=== PATIENT | female | born 1955 | race Hispanic/Latino ===

== ENCOUNTER 2017-06-07 20:14 | Emergency (ER) | payer OTHER ==
[2017-06-07 21:15] LABS: BASOPHILS % (AUTO) 0.2 % (0.0-5.0); EOSINOPHILS % (AUTO) 0.9 % (0.0-8.0); HEMATOCRIT 32.9 % (36-48); LYMPHOCYTES % (AUTO) 12.5 % (21.0-51.0); MEAN CORPUSCULAR HEMOGLOBIN 28.8 pg (27.0-33.0); MEAN CORPUSCULAR HGB CONC 33.8 g/dL (32.0-36.0); MEAN CORPUSCULAR VOLUME 85.3 fL (79-99); MONOCYTES % (AUTO) 7.8 % (3.0-13.0); NEUTROPHILS % (AUTO) 78.6 % (40.0-77.0); PLATELET COUNT (AUTO) 234 K/uL (130-400); RED BLOOD CELL COUNT(AUTO) 3.86 MIL/uL (4.00-5.50); RED CELL DISTRIBUTION WIDTH 13.2 % (11.0-15.5); WHITE BLOOD COUNT (AUTO) 10.5 K/uL (4.8-10.8)
[2017-06-07 21:27] LABS: CREATININE 0.7 mg/dL (0.5-1.5); POTASSIUM 3.6 mmol/L (3.5-5.1)
[2017-06-07 21:33] LABS: ALBUMIN 3.9 g/dL (3.5-5.0); BILIRUBIN,TOTAL 0.6 mg/dL (0.2-1.0); TOTAL PROTEIN, SERUM 7.5 g/dL (6.0-8.3)
[2017-06-07] MEDS ORDERED: AZITHROMYCIN 250 MG TABLET PO ONE (22:30)
[2017-06-07] MEDS ORDERED: CEFTRIAXONE SODIUM 1 GM ONE (22:30)
[2017-06-07] MEDS ORDERED: BENZONATATE 100 MG CAPSULE PO ONE (23:13)
== END 2017-06-07 23:47 | disposition home or self-care (01) ==
LOC: EDH 20:14
DX: J18.1 Lobar pneumonia, unspecified organism (principal); G40.909 Epilepsy, unspecified, not intractable, without status epilepticus; Z88.0 Allergy status to penicillin
CPT/HCPCS: 36415; 71045; 80053; 85025; 87804 ×2; 96374; 99285; J0696; 93005

== ENCOUNTER 2020-07-26 13:49 | Emergency (ER) | payer BC, OTHER ==
[2020-07-26 14:10] LABS: BASOPHILS % (AUTO) 0.5 % (0.0-5.0); HEMATOCRIT 35.8 % (36-48); LYMPHOCYTES % (AUTO) 27.7 % (21.0-51.0); MEAN CORPUSCULAR HEMOGLOBIN 28.6 pg (27.0-33.0); MEAN CORPUSCULAR HGB CONC 32.4 g/dL (32.0-36.0); MEAN CORPUSCULAR VOLUME 88.4 fL (79-99); MONOCYTES % (AUTO) 5.5 % (3.0-13.0); NEUTROPHILS % (AUTO) 63.8 % (40.0-77.0); PLATELET COUNT (AUTO) 255 K/uL (130-400); RED BLOOD CELL COUNT(AUTO) 4.05 MIL/uL (4.00-5.50); RED CELL DISTRIBUTION WIDTH 12.8 % (11.0-15.5)
[2020-07-26] MEDS ORDERED: LORAZEPAM 2 MG/ML 1 ML VIAL ONE (14:10)
[2020-07-26] MEDS ORDERED: ASPIRIN 81MG TAB.CHEW ONE (14:14)
[2020-07-26 14:19] LABS: CREATININE 0.9 mg/dL (0.5-1.5); POTASSIUM 3.6 mmol/L (3.5-5.1)
[2020-07-26 14:20] LABS: INR 1.04 (0.85-1.15); PROTHROMBIN TIME 11.3 SEC (9.6-11.6)
[2020-07-26 14:22] LABS: PARTIAL THROMBOPLASTIN TIME 29.3 SEC (26.3-35.5)
[2020-07-26 14:24] LABS: ALBUMIN 3.9 g/dL (3.5-5.0); BILIRUBIN,TOTAL 0.3 mg/dL (0.2-1.0); TOTAL PROTEIN, SERUM 7.3 g/dL (6.0-8.3)
== END 2020-07-26 14:57 | disposition home or self-care (01) ==
LOC: EDH 13:49
DX: F41.9 Anxiety disorder, unspecified (principal); R07.89 Other chest pain; Z88.0 Allergy status to penicillin
CPT/HCPCS: 36415; 71045; 80053; 82542; 82550; 84484; 85025; 85610; 85730; 93005; 96374; 99285; J2060

== ENCOUNTER 2020-09-13 10:29 | Emergency (ER) | payer BC ==
[2020-09-13] MEDS ORDERED: KETOROLAC TROMETHAMINE 30MG/ML ONE (11:29)
[2020-09-13] MEDS ORDERED: KETOROLAC TROMETHAMINE 60 MG/2 ML VIAL ONE (11:38)
[2020-09-13] MEDS ORDERED: HYDROCODONE/ACETAMINOPHEN 7.5/325 MG TAB ONE (13:37)
== END 2020-09-13 14:31 | disposition home or self-care (01) ==
LOC: EDH 10:29
DX: S39.012A Strain of muscle, fascia and tendon of lower back, initial encounter (principal); S30.0XXA Contusion of lower back and pelvis, initial encounter; S70.11XA Contusion of right thigh, initial encounter; S09.90XA Unspecified injury of head, initial encounter; M54.42 Lumbago with sciatica, left side; G40.909 Epilepsy, unspecified, not intractable, without status epilepticus; Z88.0 Allergy status to penicillin; W18.39XA Other fall on same level, initial encounter; Y93.01 Activity, walking, marching and hiking; Y92.89 Other specified places as the place of occurrence of the external cause; Y99.8 Other external cause status
CPT/HCPCS: 70450; 72131; 72192; 96372; 99284; J1885

== ENCOUNTER → 2023-11-21 | Outpatient (CLI) | payer OTHER ==
[~2023-11-21] MED LIST: D-ME118S56 PO
[2023-11-21 16:28] LABS: BILIRUBIN,TOTAL 0.2 mg/dL (0.2-1.0); CREATININE 0.8 mg/dL (0.5-1.0); POTASSIUM 3.7 mmol/L (3.5-5.1); TOTAL PROTEIN, SERUM 7.6 g/dL (6.0-8.3)
== END | disposition home or self-care (01) ==
LOC: LAB 11-14 15:49
PROVIDERS: ATTEND Internal Medicine Cardiovascular Disease
DX: R07.9 Chest pain, unspecified (principal)
CPT/HCPCS: 36415; 80053

== ENCOUNTER → 2023-11-30 | Outpatient (CLI) | payer OTHER ==
[~2023-11-30] MED LIST changes: +IOHEXOL 350 MG/ML 100ML INFUS..BTL IV ONE
== END | disposition home or self-care (01) ==
LOC: RAH 11:09
PROVIDERS: ATTEND Internal Medicine Cardiovascular Disease
DX: I25.10 Atherosclerotic heart disease of native coronary artery without angina pectoris (principal); R07.9 Chest pain, unspecified; M47.815 Spondylosis without myelopathy or radiculopathy, thoracolumbar region
CPT/HCPCS: 75574; Q9967

== ENCOUNTER → 2023-12-16 | Outpatient (CLI) | payer OTHER ==
[~2023-12-16] MED LIST changes: -IOHEXOL 350 MG/ML 100ML INFUS..BTL IV ONE
== END | disposition home or self-care (01) ==
LOC: SHCH 08:43
PROVIDERS: ATTEND Internal Medicine Cardiovascular Disease
DX: R01.1 Cardiac murmur, unspecified (principal)
CPT/HCPCS: 93306

== ENCOUNTER 2024-12-22 11:04 | Emergency (ER) | payer OTHER, MEDICAID ==
[~2024-12-22] VITALS: Ht 157.5 cm; Wt 68.9 kg
--- NOTE | 2024-12-22 11:13 | ERN ---
ED Note History of Present Illness Stated Complaint: CP Chief Complaint: Chest Pain Time Seen by MD: 11:08 Dictation: PATIENT IS A 69-YEAR-OLD FEMALE COMING IN TODAY WITH SUBSTERNAL CHEST PAIN THAT DOES NOT RADIATE AND HAS BEEN CONSTANT SINCE TUESDAY. NO SOB NO BACK PAIN NO JAW PAIN NO ARM PAIN. SHE STATES SHE SAW HER DOCTOR TUESDAY WHO EVALUATED HER, DIAGNOSED HER WITH ANGINA HOWEVER DID NOT PROVIDE HER WITH ANY NITROGLYCERIN. HE REFERRED HER TO DR. NEHEMIAH LESLIE AND SHE HAS A AN APPOINTMENT NEXT WEEK. SHE STATES SHE CAME IN TODAY BECAUSE SHE WAS UNCOMFORTABLE AND WANTED FURTHER EVALUATION AND TREATMENT Allergies: Coded Allergies: Penicillins (Unverified Allergy, Unknown, 09/13/20) lidocaine (Unverified Allergy, Unknown, 07/24/23) Home Meds Active Scripts Pantoprazole Sodium (Pantoprazole Sodium) 40 Mg Tablet.dr, 1 TAB PO DAILY for 30 Days, #30 TAB 0 Refills Prov:PATRIA BRAVO BIOLOGICAL SCIENTIST 12/22/24 Sucralfate (Carafate) 1 Gram Tablet, 1 GM PO ACHS for 5 Days, #20 TAB Prov:PATRIA BRAVO NP 12/22/24 D-Methorphan Hb/P-Epd HCl/Bpm (Qyshblvyha-Sexwjguxuug-Zl Syr) 2 Mg-30 Mg-10 Mg/5 Ml Syrup, 118 ML PO BID, #100 ML Prov:MARIN ARCHER MD 07/24/23 Past Medical History Past Medical History: Dementia, Depression, Hypertension, Seizure Additional Past Medical Hx: OSTEOPOROSIS, Surgical History: Cholecystectomy Surgical History Other: CATARCT SX History: Not Applicable RN Note Reviewed/Agreed w/PFSH: Yes Review of System Dictation CONSTITUTIONAL: NEGATIVE EXCEPT FOR HPI HEAD/FACE: NEGATIVE EXCEPT FOR HPI EENT: NEGATIVE EXCEPT FOR HPI RESPIRATORY: NEGATIVE EXCEPT FOR HPI SUBSTERNAL CHEST PAIN GASTROINTESTINAL/ABDOMINAL: NEGATIVE EXCEPT FOR HPI GENITOURINARY: NEGATIVE EXCEPT FOR HPI MUSCULOSKELETAL: NEGATIVE EXCEPT FOR HPI INTEGUMENTARY: NEGATIVE EXCEPT FOR HPI NEUROLOGICAL/PSYCH: NEGATIVE EXCEPT FOR HPI HEMATOLOGIC/LYMPHATIC: NEGATIVE EXCEPT FOR HPI ALL SYSTEMS NEGATIVE, EXCEPT NOTED ABOVE. 13 POINT REVIEW OF SYSTEMS ASSESSED AND ALL NEGATIVE EXCEPT FOR ABOVE. Initial Vital Sign VS Vital Signs Date Time Temp Pulse Resp B/P (MAP) Pulse Ox O2 Delivery O2 Flow Rate FiO2 12/22/24 11:07 97.5 76 16 127/69 97 Room Air 0 12/22/24 11:11 21 Physical Exam Dictation VITAL SIGNS REVIEWED GENERAL APPEARANCE: ALERT, ORIENTED X 3, MILD ACUTE DISTRESS, WELL DEVELOPED, NOURISHED. HEAD AND FACE: NON-TRAUMATIC. EYES: PERRL, PINK CONJUNCTIVAS, EYELID NO TRAUMA, ANTERIOR CHAMBER WITH ARCUS SENILIS. EARS: PINNAS INTACT AND NO SIGNS OF TRAUMA OR ERYTHEMA EAR CANALS CLEAR AND NO DISCHARGE TM NO ERYTHEMA NOSE: NO DISCHARGE, NO BLEEDING. OROPHARYNX: MOUTH NORMAL, TONGUE PINK, PHARYNX CLEAR,NO ERYTHEMA, TONSILS NO EXUDATES, NO ABSCESSES NOTED, MUCOUS MEMBRANE MOIST NECK: SUPPLE, NON-TENDER, NO THYROMEGALY, NO MASSES, NO JVD, NO BRUITS BREAST:DEFERRED CHEST:NO TENDERNESS, NO CREPITUS, NO PARADOXICAL MOVEMENT, NO RETRACTIONS LUNGS:CLEAR, WELL-VENTILATED, SYMMETRIC, NO RALES, NO WHEEZING, NO RHONCHI, NO STRIDOR, GOOD BREATH SOUNDS BILATERALLY HEART: REGULAR RATE, REGULAR RHYTHM, NO MURMUR, NO GALLOPS VASCULAR: NO PERIPHERAL EDEMA, ABDOMEN: SOFT, POSITIVE BOWEL SOUNDS, NONDISTENDED, NO GUARDING, NONTENDER, NO REBOUND, NO MASSES NO HEPATOMEGALY, NO SPLENOMEGALY, NO SAAVEDRA'S SIGN, NO HERNIAS. RECTAL: DEFERRED GENITAL: DEFERRED NEUROLOGICAL: NORMAL SPEECH, MOTOR FUNCTION INTACT, SENSORY FUNCTION INTACT MUSCULOSKELETAL: NECK NONTENDER, FULL RANGE OF MOTION, BACK NONTENDER, FULL RANGE OF MOTION, EXTREMITIES: NONTENDER, FULL RANGE OF MOTION SKIN: COLOR PINK, DRY, NO TURGOR, NO RASH, NO LACERATIONS, NO ABRASIONS, NO CONTUSIONS. LYMPHATIC: DEFERRED Results (Laboratory/Radiology) Laboratory/Radiology Laboratory Tests Test 12/22/24 11:27 12/22/24 12:30 White Blood Count 6.4 K/uL (4.8-10.8) Red Blood Count 4.05 MIL/uL (4.00-5.50) Hemoglobin 11.8 g/dL (12.0-16.0) L Hematocrit 36.8 % (36-48) Mean Corpuscular Volume 90.9 fL (79-99) Mean Corpuscular Hemoglobin 29.1 pg (27.0-33.0) Mean Corpuscular Hemoglobin Concent 32.1 g/dL (32.0-36.0) Red Cell Distribution Width 13.1 % (11.0-15.5) Platelet Count 242 K/uL (130-400) Mean Platelet Volume 9.3 fL (7.5-10.5) Immature Granulocyte % (Auto) 0.6 % (0-1) Neutrophils (%) (Auto) 61.4 % (40.0-77.0) Lymphocytes (%) (Auto) 25.7 % (21.0-51.0) Monocytes (%) (Auto) 8.2 % (3.0-13.0) Eosinophils (%) (Auto) 3.5 % (0.0-8.0) Basophils (%) (Auto) 0.6 % (0.0-5.0) Neutrophils # (Auto) 3.9 K/uL (1.8-7.7) Lymphocytes # (Auto) 1.6 K/uL (1.0-4.8) Monocytes # (Auto) 0.5 K/uL (0.1-1.0) Eosinophils # (Auto) 0.22 K/uL (0.00-0.70) Basophils # (Auto) 0.04 K/uL (0.00-0.20) Absolute Immature Granulocyte (auto 0.04 K/uL (0-1) Nucleated Red Blood Cells 0.0 % (0.0-0.19) Sodium Level 141 mmol/L (136-145) Potassium Level 3.9 mmol/L (3.5-5.1) Chloride Level 105 mmol/L (101-111) Carbon Dioxide Level 30 mmol/L (21-32) Blood Urea Nitrogen 18 mg/dL (7-18) Creatinine 0.7 mg/dL (0.5-1.0) Glomerular Filtration Rate Calc 94 mL/min (>90) Random Glucose 125 mg/dL (70-105) H Total Calcium 9.1 mg/dL (8.5-10.1) Magnesium Level 2.10 mg/dL (1.80-2.40) Troponin I High Sensitivity < 4 ng/L (4-50) L < 4 ng/L (4-50) L B-Type Natriuretic Peptide 30 pg/mL (0-100) Labs Reviewed?: Yes EKG: (+) NSR EKG Comment: EKG normal sinus rhythm/heart rate 70 /axis normal/no ectopy 1239, 2ND EKG NORMAL SINUS RHYTHM/HEART RATE 57/AXIS NORMAL/NO ECTOPY 1305/REPEAT HIGH SENSITIVITY TROPONIN LESS THAN FOUR, HEART SCORE REMAINS THREE ED Course ED Course Orders Procedure Category Date Status Time Cbc With Differential LAB 12/22/24 Complete 11:10 Chest 1vw RAD 12/22/24 Resulted 11:10 12 Lead Ekg Tracing- EKG 12/22/24 Complete Technical 11:10 Nitroglycerin 0.4mg PHA 12/22/24 In Process Sl Tab (Nitrostat) 11:30 Magnesium LAB 12/22/24 Complete 11:10 Troponin I High LAB 12/22/24 Complete Sensitivity 11:10 Aspirin 325mg Tab PHA 12/22/24 Complete (Aspirin 325mg Tab) 11:30 Basic Metabolic Panel LAB 12/22/24 Complete 11:10 B-Type Natriuretic LAB 12/22/24 Complete Peptide 11:10 Oxygen By Nc/Pulse Ox CPOE 12/22/24 Transmitted 11:13 Lidocaine Hcl 2% PHA 12/22/24 Complete Viscous (Lidocaine Hcl 12:30 Mag/Alum/Simeth 30ml PHA 12/22/24 Complete (Maalox Plus 30ml) 12:30 Dicyclomine Hcl PHA 12/22/24 Complete (Bentyl 10mg/5ml 12:30 Famotidine 20mg Vial PHA 12/22/24 Complete (Pepcid 20mg Vial) 12:30 12 Lead Ekg Tracing- EKG 12/22/24 Complete Technical 12:21 Troponin I High LAB 12/22/24 Complete Sensitivity 12:21 Ketorolac PHA 12/22/24 Verified Tromethamine 30mg/Ml 15:00 Current Medications Medications (Trade) Dose Ordered Sig/Emiliano Route PRN Reason Start Time Stop Time Status Last Admin Dose Admin Al Hydroxide/Mg Hydroxide (MAALox PLUS 30ML) 30 ml ONCE ONCE PO 12/22/24 12:30 12/22/24 12:31 DC 12/22/24 12:58 Aspirin (Aspirin 325mg Tab) 325 mg ONCE ONCE PO 12/22/24 11:30 12/22/24 11:31 DC 12/22/24 11:27 Dicyclomine HCl (Bentyl 10mg/5ml Syrup) 10 mg ONCE ONCE PO 12/22/24 12:30 12/22/24 12:31 DC 12/22/24 12:58 Famotidine (Pepcid 20mg Vial) 20 mg ONCE ONCE IV 12/22/24 12:30 12/22/24 12:31 DC 12/22/24 12:58 Lidocaine HCl (Lidocaine HCl 2% Viscous) 10 ml ONCE ONCE PO 12/22/24 12:30 12/22/24 12:29 DC Nitroglycerin (Nitrostat) 0.4 mg Q5M PRN SL CHEST PAIN 12/22/24 11:30 12/22/24 11:27 Vital Signs Date Time Temp Pulse Resp B/P (MAP) Pulse Ox O2 Delivery O2 Flow Rate FiO2 12/22/24 12:37 97.5 60 17 105/54 95 Room Air* 0 21 12/22/24 11:40 97.5 70 16 104/53 95 Room Air* 0 21 12/22/24 11:11 97.5 76 16 127/69 97 Room Air* 0 21 12/22/24 11:07 97.5 76 16 127/69 97 Room Air 0 1120/PATIENT STATES PAIN IS NOT IMPROVED AFTER TREATMENT WITH NITRO OXYGEN AND ASPIRIN. SHE DESCRIBES THE PAIN BURNING, DOES STATE SHE HAS A HISTORY OF GASTRITIS. SHE IS AWARE THE INITIAL CARDIAC WORKUP WAS NEGATIVE WITH NORMAL SINUS RHYTHM AND HIGH SENSITIVITY TROPONIN LESS THAN FOUR. SHE HAS MILD EPIGASTRIC TENDERNESS WE WILL GIVE GI COCKTAIL WITH PEPCID, WE WILL REPEAT EKG AND [id number]/ 1355/PATIENT STATES PAIN IS COMPLETELY RESOLVED AFTER MAALOX AND PEPCID. SHE IS AWARE THAT HER EKG X2 WITH HIGH SENSITIVITY TROPONIN IS NEGATIVE. SHE DOES NOT WISH TO STAY IN THE HOSPITAL HER IS THE BEDSIDE AND SAID THEY WANT TO GO HOME. HEART Score Response (Comments) Value History: Low suspicion (0) 0 Age: > 65yrs (+2) 2 Risk Factors: 1-2 risk factors (+1) 1 Initial Troponin: Normal limit (0) 0 Total 3 Medical Decision Making MDM MDM: DIFFERENTIAL DIAGNOSIS: ACS/AMI/ELECTROLYTE IMBALANCE/DEHYDRATION/CASTANEDA OTITIS/GASTRITIS RATIONALE: TESTS CONSIDERED AND ORDERED SECONDARY TO SHARED DECISION MAKING INCLUDE: EKG/LABS PREVIOUS OUTSIDE RECORDS REVIEWED: OLD ER VISITS. RISK OF COMPLICATION AND/OR MORBIDITY OR MORTALITY OF PATIENT MANAGEMENT: NONE MEDICATIONS-PER MEDICATION RECONCILIATION NEED FOR HOSPITALIZATION: PATIENT DOES NOT MEET CRITERIA FOR HOSPITALIZATION. PATIENT REFUSED ADMISSION AT THIS TIME WISHES TO GO HOME BE TREATED FOR GASTRITIS NEED FOR EMERGENCY MAJOR/MINOR SURGERY: NO THERE ARE NO SOCIAL CONCERNS WITH THIS PATIENT. PRESCRIPTION DRUG MANAGEMENT PRESCRIPTIONS WILL INCLUDE SYMPTOMATIC CARE PATIENT'S PRIOR EXTERNAL MEDICAL RECORDS FROM OTHER ER VISITS WERE REVIEWED BY ME INDICATED. PRIOR TESTING AND RESULTS FROM PREVIOUS VISITS WERE REVIEWED. PRIOR TESTS WERE TAKEN INTO ACCOUNT WITH MEDICAL DECISION MAKING AND RESOURCE UTILIZATION, INDEPENDENT HISTORIAN/HISTORIANS WERE USED TO OBTAIN COMPLETE MEDICAL HISTORY. I INDEPENDENTLY INTERPRETED THE TEST THAT WERE PERFORMED, RESULTS WERE REVIEWED BY ME AND CONSIDERED FINDINGS ON RADIOLOGY IF ORDERED. MEDICAL MANAGEMENT AND EXAMINATION INTERPRETATION DISCUSSIONS WERE HAD BY ME WITH OTHER QUALIFIED HEALTHCARE PROFESSIONALS INDICATED FOR THE PATIENT'S CARE. DX & DISP Disposition: Discharge Departure Impression: Primary Impression: Acute gastritis Additional Impressions: Hyperglycemia, Tension headache Condition: Stable Scripts Butalb/Acetaminophen/Caffeine (Fioricet) 50 Mg-325 Mg-40 Mg Tab 2 TAB PO Q4HPRN PRN for HEADACHE, #20 TAB TWO TABLETS BY MOUTH EVERY 4 HOURS P.R.N. HEADACHE, MAXIMUM SIX TABLETS IN 24 HOURS Prov: PATRIA BRAVO NP 12/22/24 Pantoprazole Sodium (Pantoprazole Sodium) 40 Mg Tablet.dr 1 TAB PO DAILY for 30 Days, #30 TAB 0 Refills Prov: PATRIA BRAVO NP 12/22/24 Sucralfate (Carafate) 1 Gram Tablet 1 GM PO ACHS for 5 Days, #20 TAB Prov: PATRIA BRAVO NP 12/22/24 Additional Instructions: FOLLOW-UP WITH PRIMARY CARE PROVIDER IN 1 TO 2 DAYS. TAKE MEDICATIONS DIRECTED HERE IN THE EMERGENCY ROOM. OKAY TO CONTINUE HOME MEDICATIONS UNLESS OTHERWISE DISCUSSED DURING YOUR VISIT IN THE EMERGENCY ROOM TODAY. RETURN TO YOUR NEAREST EMERGENCY ROOM IF SYMPTOMS WORSEN OR IF THERE IS NO IMPROVEMENT. CALL 911 IF YOU NEED IMMEDIATE ASSISTANCE. TAKE TYLENOL OR MOTRIN [id number] NEEDED AND IF NO CONTRAINDICATIONS ARE PRESENT. INCREASE ORAL HYDRATION. A WOUND CULTURE OR URINE CULTURE WAS ORDERED HERE IN THE EMERGENCY ROOM DEPARTMENT PLEASE FOLLOW-UP WITH PRIMARY CARE PROVIDER AND ADVISE THEM TO GET REPEAT PORTS FROM OUR FACILITY. IF YOU HAD ANY EDDIE WRAP/SPLINTS THAT WERE APPLIED HERE, PLEASE DO NOT REMOVE THEM UNTIL YOU SEE YOUR PRIMARY CARE OR SPECIALTY. TAKE CARAFATE AND PANTOPRAZOLE DIRECTED. SUGGEST A BLAND DIET WITH WATER FOR FLUIDS ONLY. NO SPICY FOODS NO ALCOHOL NO TOBACCO NO CITRUS FRUIT JUICE NO TOMATOES NO ICE TEA, NO COFFEE UNTIL CLEARED BY YOUR DOCTOR NEXT WEEK. Referrals: AFSANEH KEATING MD (PCP) I have reviewed the case, and I agree with, Diagnosis and Plan PATRIA BRAVO NP Dec 22, 2024 11:13
--- NOTE | 2024-12-22 11:21 | EKG ---
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
[2024-12-22] MEDS: ASPIRIN 325MG TAB PO ONE (11:27)
[2024-12-22] MEDS: NITROGLYCERIN 0.4 MG SL TAB SL PRN (11:27)
[2024-12-22 11:33] LABS: IMMATURE GRANULOCYTE ABSOLUTE 0.04 K/uL (0-1); NUCLEATED RED BLOOD CELLS 0.0 % (0.0-0.19); PLATELET COUNT (AUTO) 242 K/uL (130-400); RED BLOOD CELL COUNT(AUTO) 4.05 MIL/uL (4.00-5.50); RED CELL DISTRIBUTION WIDTH 13.1 % (11.0-15.5); WHITE BLOOD COUNT (AUTO) 6.4 K/uL (4.8-10.8)
[2024-12-22 11:44] LABS: CREATININE 0.7 mg/dL (0.5-1.0); GLOMERULAR FILTR. RATE CALC 94.0 mL/min (>90); GLUCOSE,RANDOM 125.0 mg/dL (70-105); SODIUM SERUM 141.0 mmol/L (136-145); UREA NITROGEN, BLOOD 18.0 mg/dL (7-18)
[2024-12-22] MEDS ORDERED: LIDOCAINE HCL 2% VISCOUS 15 ML UDCUP PO ONE (12:30)
--- NOTE | 2024-12-22 12:30 | HMCIMG ---
EXAM: CR Chest, 1 View. CLINICAL HISTORY: CHEST PAIN COMPARISON: None provided. FINDINGS: LUNGS: The lungs show no infiltrate or other acute finding. PLEURAL SPACES: No pleural effusion or pneumothorax. MEDIASTINUM: Cardiac size and mediastinal contours within normal limits. BONES: No acute osseous abnormality. IMPRESSION: No acute cardiopulmonary pathology is evident. /[place]
--- NOTE | 2024-12-22 12:43 | EKG ---
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
[2024-12-22] MEDS: DICYCLOMINE HCL 10 MG/5 ML ML PO ONE (12:58)
[2024-12-22] MEDS: FAMOTIDINE 20MG VIAL IV ONE (12:58)
[2024-12-22] MEDS: MAG/ALUM/SIMETH 30 ML UDCUP PO ONE (12:58)
[2024-12-22] MEDS ORDERED: PANT40TA54 PO (13:59)
[2024-12-22] MEDS ORDERED: SUCR1TAB28 PO (13:59)
[2024-12-22] MEDS ORDERED: FIORIT PO (14:34)
[2024-12-22 14:35] VITALS: BP 123/66; PULSE 57; RESP 16; TEMP 97.5; O2SAT 98
== END 2024-12-22 14:54 | disposition home or self-care (01) ==
LOC: EDH 11:04
DX: K29.00 Acute gastritis without bleeding (principal); G44.209 Tension-type headache, unspecified, not intractable; R73.9 Hyperglycemia, unspecified; F03.90 Unspecified dementia, unspecified severity, without behavioral disturbance, psychotic disturbance, mood disturbance, and anxiety; I10 Essential (primary) hypertension; Z79.899 Other long term (current) drug therapy; Z88.0 Allergy status to penicillin; Z90.49 Acquired absence of other specified parts of digestive tract
CPT/HCPCS: 99285; 96374; 71045; 96375; 83735; 84484 ×2; 80048; 83880; 85025; 36415; 93005 ×2; J1885; J3490